=== PATIENT | female | born 1955 | race Caucasian/White ===

== ENCOUNTER 2020-01-07 12:28 | Emergency (ER) | payer OTHER ==
[2020-01-07] MEDS ORDERED: KETOROLAC 30 MG/ML INJ ONE (13:40)
[2020-01-07] MEDS ORDERED: HYDROCODONE/APAP 7.5/325 MG TAB ONE (13:40)
--- NOTE | 2020-01-07 14:22 | RAD REPORT ---
EXAM DESCRIPTION: RAD - Lumbar Spine 3 Views - 01/07/2020 2:13 pm CLINICAL HISTORY: PAIN Radiculopathy COMPARISON: No comparisons FINDINGS: Vertebral body heights appear maintained. No compression fracture noted. Mild disc thinnin g is present at L3-4 and L4-5. Mild levoscoliosis is present. Cholecystectomy clips. Aortic atherosclerosis. IMPRESSION: Mild lower lumbar spondylosis.
--- NOTE | 2020-01-07 14:39 | EDPHYS ---
Physician Documentation [facility] Name: Helena Armas Age: 64 yrs Sex: Female : 1955 Arrival Date: 01/07/2020 Time: 12:31 Bed 8 Private MD: ED Physician Anthony Hodgson HPI: 01/07 13:42 This 64 yrs old Female presents to ER via Wheelchair with complaints of Hip jr8 Pain/back pain. 13:42 The patient presents with pain that is acute, with no known mechanism of injury, and jr8 decreased range of motion. The symptoms are located in the low back, left low back. The pain radiates to the left hip. The problem was sustained without known cause. Onset: The symptoms/episode began/occurred acutely, today. Modifying factors: The patient symptoms are alleviated by nothing, the patient symptoms are aggravated by any movement. Associated signs and symptoms: The patient has no apparent associated signs or symptoms. Severity of symptoms: At their worst the symptoms were moderate, in the emergency department the symptoms are unchanged. The patient has not experienced similar symptoms in the past. The patient has not recently seen a physician. 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 Immediate pain with decreased ROM. Denies fall injury or trying to get up. Pain persistent and not going away. Able to ambulate but with assistance . Historical: - Allergies: 12:36 No Known Allergies; rb1 - Home Meds: 12:36 pravastatin 80 mg oral tab 1 tab once daily [Active]; levothyroxine 50 mcg tab 1 tab rb1 once daily [Active]; amlodipine 5 mg tab 1 tab once daily [Active]; pantoprazole 40 mg oral TbEC 1 tab once daily [Active]; - PMHx: 12:36 Hypothyroidism; High Cholesterol; rb1 - PSHx: 12:36 Cholecystectomy; colon resection; hemorrhoidectomy; rb1 - Immunization history:: Adult Immunizations up to date. - Coronavirus screen:: The patient has NOT traveled to [place] in the past 14 days. The patient has NOT had contact with known/suspected case of Coronavirus?. - Social history:: Smoking status: Patient/guardian denies using. - Ebola Screening: : Patient negative for fever greater than or equal to 101.5 degrees Fahrenheit, and additional compatible Ebola Virus Disease symptoms Patient denies travel to an Ebola-affected area in the 21 days before illness onset. ROS: 13:42 Eyes: Negative for injury, pain, redness, and discharge, ENT: Negative for injury, jr8 pain, and discharge, Neck: Negative for injury, pain, and swelling, Cardiovascular: Negative for chest pain, palpitations, and edema, Respiratory: Negative for shortness of breath, cough, wheezing, and pleuritic chest pain, Abdomen/GI: Negative for abdominal pain, nausea, vomiting, diarrhea, and constipation, MS/Extremity: Negative for injury and deformity, Skin: Negative for injury, rash, and discoloration, Neuro: Negative for headache, weakness, numbness, tingling, and seizure. 13:42 Back: Positive for pain at rest, pain with movement, radiated pain. Exam: 13:42 Eyes: Pupils equal round and reactive to light, extra-ocular motions intact. Lids and jr8 lashes normal. Conjunctiva and sclera are non-icteric and not injected. Cornea within normal limits. Periorbital areas with no swelling, redness, or edema. ENT: Nares patent. No nasal discharge, no septal abnormalities noted. Tympanic membranes are normal and external auditory canals are clear. Oropharynx with no redness, swelling, or masses, exudates, or evidence of obstruction, uvula midline. Mucous membranes moist. Neck: Trachea midline, no thyromegaly or masses palpated, and no cervical lymphadenopathy. Supple, full range of motion without nuchal rigidity, or vertebral point tenderness. No Meningismus. Chest/axilla: Normal chest wall appearance and motion. Nontender with no deformity. No lesions are appreciated. Cardiovascular: Regular rate and rhythm with a normal S1 and S2. No gallops, murmurs, or rubs. Normal PMI, no JVD. No pulse deficits. Respiratory: Lungs have equal breath sounds bilaterally, clear to auscultation and percussion. No rales, rhonchi or wheezes noted. No increased work of breathing, no retractions or nasal flaring. Abdomen/GI: Soft, non-tender, with normal bowel sounds. No distension or tympany. No guarding or rebound. No evidence of tenderness throughout. Skin: Warm, dry with normal turgor. Normal color with no rashes, no lesions, and no evidence of cellulitis. MS/ Extremity: Pulses equal, no cyanosis. Neurovascular intact. Full, normal range of motion. Neuro: Awake and alert, GCS 15, oriented to person, place, time, and situation. Cranial nerves II-XII grossly intact. Motor strength 5/5 in all extremities. Sensory grossly intact. Cerebellar exam normal. Normal gait. 13:42 Back: pain, that is moderate, of the left low back, ROM is painful, normal spinal alignment noted, CVA tenderness, is absent, vertebral tenderness, is not appreciated, Straight leg raises: of both lower extremities does not illicit pain. Vital Signs: 12:36 BP 140 / 76; Pulse 63; Resp 17; Temp 97.9(O); Pulse Ox 100% on R/A; Weight 53.98 kg rb1 (R); Height 5 ft. 2 in. (157.48 cm) (R); Pain 8/10; 13:30 BP 131 / 67; Pulse 68; Resp 16; Pulse Ox 100% on R/A; Pain 8/10; rb1 12:36 Body Mass Index 21.77 (53.98 kg, 157.48 cm) rb1 MDM: 13:03 Patient medically screened. jr8 14:38 Data reviewed: vital signs, nurses notes, radiologic studies, plain films. Data jr8 interpreted: Pulse oximetry: on room air is 100 %. Interpretation: normal. Counseling: I had a detailed discussion with the patient and/or guardian regarding: the historical points, exam findings, and any diagnostic results supporting the discharge/admit diagnosis, radiology results, the need for outpatient follow up, a family practitioner, to return to the emergency department if symptoms worsen or persist or if there are any questions or concerns that arise at home. Response to treatment: the patient's symptoms have markedly improved after treatment. 01/07 13:14 Order name: XRAY Lumbar Spine (3 Views) jr8 Administered Medications: 13:36 Drug: TORadol - Ketorolac 15 mg Route: IM; Site: right deltoid; rb1 15:03 Follow up: Response: No adverse reaction ph 13:36 Drug: [place] (7.5 mg-325 mg) 1 tabs Route: PO; rb1 15:03 Follow up: Response: No adverse reaction; Pain is decreased; RASS: Alert and Calm (0) ph Disposition: 16:34 Co-signature as Attending Physician, Anthony Hodgson MD. rn Disposition: 01/07/20 14:38 Discharged to Home. Impression: Low back pain. - Condition is Stable. - Discharge Instructions: Back Pain, Adult, Musculoskeletal Pain, Back Exercises, [id number], Heat Therapy. - Prescriptions for Ibuprofen 800 mg Oral Tablet - take 1 tablet by ORAL route every 12 hours As needed take with food; 20 tablet. Zanaflex 4 mg Oral Tablet - take 1 tablet by ORAL route every 8 hours As needed; 20 tablet. Medrol (Syed) 4 mg Oral Tablets, Dose Pack - take 1 tablet by ORAL route as directed - follow package instructions; 1 packet. - Medication Reconciliation Form, Thank You Letter, Antibiotic Education, Prescription Opioid Use form. - Follow up: Private Physician; When: 5 - 6 days; Reason: Recheck today's complaints, Continuance of care, Re-evaluation by your physician. - Problem is new. - Symptoms have improved. Signatures: Dispatcher [employer] EDMS Anthony Hodgson MD MD rn Toney Rivera PA PA jr8 Renay Tran RN RN Anamaria Oseguera, ADRIAN RN rb1 Corrections: (The following items were deleted from the chart) 15:06 14:38 01/07/2020 14:38 Discharged to Home. Impression: Low back pain. Condition is ph Stable. Forms are Medication Reconciliation Form, Thank You Letter, Antibiotic Education, Prescription Opioid Use. Follow up: Private Physician; When: 5 - 6 days; Reason: Recheck today's complaints, Continuance of care, Re-evaluation by your physician. Problem is new. Symptoms have improved. jr8
--- NOTE | 2020-01-07 14:39 | ER ---
Nurse's Notes [facility] Name: Helena Armas Age: 64 yrs Sex: Female : 1955 Arrival Date: 01/07/2020 Time: 12:31 Bed 8 Private MD: Diagnosis: Low back pain Presentation: 01/07 12:36 Presenting complaint: Patient states: Was on the mower when she heard two big pops and rb1 was unable to get off the mower. Happened around 1200. Transition of care: patient was not received from another setting of care. Onset of symptoms was January 07, 2020 at 12:00. Risk Assessment: Do you want to hurt yourself or someone else? Patient reports no desire to harm self or others. Initial Sepsis Screen: Does the patient meet any 2 criteria? No. Patient's initial sepsis screen is negative. Does the patient have a suspected source of infection? No. Patient's initial sepsis screen is negative. Care prior to arrival: None. 12:36 Method Of Arrival: Wheelchair rb1 12:36 Acuity: MICHAEL 3 rb1 Triage Assessment: 12:36 General: Appears uncomfortable, slender, Behavior is calm, cooperative. Pain: Complains rb1 of pain in left hip Pain currently is 8 out of 10 on a pain scale. Pain began 1200 today. Pain: Aggravated by weight bearing. Neuro: Level of Consciousness is awake, alert, obeys commands, Oriented to person, place, time, situation, Denies numbness. Cardiovascular: Capillary refill < 3 seconds is brisk in bilateral fingers. Respiratory: Airway is patent Respiratory effort is even, unlabored, Respiratory pattern is regular, symmetrical. GI: No signs and/or symptoms were reported involving the gastrointestinal system. : No signs and/or symptoms were reported regarding the genitourinary system. Derm: Skin is pink, warm \T\ dry. Musculoskeletal: Reports pain in left hip. Historical: - Allergies: 12:36 No Known Allergies; rb1 - Home Meds: 12:36 pravastatin 80 mg oral tab 1 tab once daily [Active]; levothyroxine 50 mcg tab 1 tab rb1 once daily [Active]; amlodipine 5 mg tab 1 tab once daily [Active]; pantoprazole 40 mg oral TbEC 1 tab once daily [Active]; - PMHx: 12:36 Hypothyroidism; High Cholesterol; rb1 - PSHx: 12:36 Cholecystectomy; colon resection; hemorrhoidectomy; rb1 - Immunization history:: Adult Immunizations up to date. - Coronavirus screen:: The patient has NOT traveled to [place] in the past 14 days. The patient has NOT had contact with known/suspected case of Coronavirus?. - Social history:: Smoking status: Patient/guardian denies using. - Ebola Screening: : Patient negative for fever greater than or equal to 101.5 degrees Fahrenheit, and additional compatible Ebola Virus Disease symptoms Patient denies travel to an Ebola-affected area in the 21 days before illness onset. Screenin:36 Abuse screen: Denies threats or abuse. Nutritional screening: No deficits noted. rb1 Tuberculosis screening: No symptoms or risk factors identified. Fall Risk No fall in past 12 months (0 pts). Secondary diagnosis (15 points) impaired mobility, No IV (0 pts). Ambulatory Aid- None/Bed Rest/Nurse Assist (0 pts). Gait- Impaired (20 pts.). Mental Status- Oriented to own ability (0 pts). Total Shelton Fall Scale indicates Low Risk Score (25-44 pts). Fall prevention measures have been instituted. Side Rails Up X 2 Placed close to Nursing Station 1:1 attendant Assigned to Pt. Frequent Obs/Assesments occuring Family Present and informed to notify staff if they need to leave bedside As available Patient and Family Educated on Fall Prevention Program and strategies. Assessment: 12:36 General: See triage assessment. rb1 13:30 Reassessment: Patient appears in no apparent distress at this time. Patient and/or rb1 family updated on plan of care and expected duration. Pain level reassessed. Patient is alert, oriented x 3, equal unlabored respirations, skin warm/dry/pink. at the bedside. 13:57 Reassessment: Assisted pt. with bedside commode. Clear, yellow urine. Output 610. rb1 Vital Signs: 12:36 BP 140 / 76; Pulse 63; Resp 17; Temp 97.9(O); Pulse Ox 100% on R/A; Weight 53.98 kg rb1 (R); Height 5 ft. 2 in. (157.48 cm) (R); Pain 8/10; 13:30 BP 131 / 67; Pulse 68; Resp 16; Pulse Ox 100% on R/A; Pain 8/10; rb1 12:36 Body Mass Index 21.77 (53.98 kg, 157.48 cm) rb1 ED Course: 12:31 Patient arrived in ED. mr 12:36 Arm band placed on right wrist. rb1 12:36 Patient has correct armband on for positive identification. Bed in low position. Call rb1 light in reach. Side rails up X 1. Pulse ox on. NIBP on. 12:38 Renay Tran RN is Primary Nurse. ph 12:39 Toney Rivera PA is PHCP. jr8 12:39 Anthony Hodgson MD is Attending Physician. jr8 12:52 Triage completed. rb1 14:17 XRAY Lumbar Spine (3 Views) In Process Unspecified. EDMS 15:04 No provider procedures requiring assistance completed. Patient did not have IV access ph during this emergency room visit. Administered Medications: 13:36 Drug: TORadol - Ketorolac 15 mg Route: IM; Site: right deltoid; rb1 15:03 Follow up: Response: No adverse reaction ph 13:36 Drug: [place] (7.5 mg-325 mg) 1 tabs Route: PO; rb1 15:03 Follow up: Response: No adverse reaction; Pain is decreased; RASS: Alert and Calm (0) ph Output: 13:57 Urine: 1ml (Voided); Total: 1ml. rb1 Outcome: 14:38 Discharge ordered by . jr8 15:04 Discharged to home via wheelchair, with significant other. ph 15:04 Condition: good 15:04 Discharge instructions given to patient, significant other, Instructed on discharge instructions, follow up and referral plans. medication usage, Demonstrated understanding of instructions, follow-up care, medications, Prescriptions given X 3. 15:06 Patient left the ED. ph Signatures: Dispatcher [employer] EDNH Kaylie Caicedo mr Toney Rivera PA PA jr8 Renay Tran RN RN Anamaria Wetzel RN RN [facility]
[2020-01-07 15:31] VITALS: TEMP 97.9; O2SAT 100
[2020-01-07 15:32] VITALS: BP 131/67
== END 2020-01-07 15:06 | disposition home or self-care (01) ==
LOC: ER 12:28
DX: M54.5 Low back pain (principal)
CPT/HCPCS: 72100; 96372; 99284

== ENCOUNTER 2022-09-11 07:04 | Day surgery (SDC) | payer OTHER ==
[2022-09-11] MEDS ORDERED: Ringers Lactate 1,000 ML IV ONE (07:22)
[2022-09-11] MEDS ORDERED: propofoL 200 MG/20 ML VIAL IV ONE (08:17)
[2022-09-11] MEDS ORDERED: LIDOCAINE 1% MPF 5 ML VIAL ONE (08:17)
--- NOTE | 2022-09-11 08:59 | ENDO RPT ---
[address], [address] COLONOSCOPY PROCEDURE REPORT EXAM DATE: 09/11/2022 PATIENT NAME: Helena Armas V. MR #: [id number] BIRTHDATE: 1955 ATTENDING: Rodriguez Villanueva MD STATUS: outpatient PANTRY STEWARD/STEWARDESS: Dalton Saavedra CST and Preethi Briscoe RN INDICATIONS: The patient is a 67 yr old Female here for a colonoscopy due to diverticulitis and history of polyps PROCEDURE PERFORMED: Colonoscopy with biopsy - cold polypectomy MEDICATIONS: Per Anesthesia. ESTIMATED BLOOD LOSS: None CONSENT: The patient understands the risks and benefits of the procedure and understands that these risks include, but are not limited to: sedation, allergic reaction, infection, perforation and/or bleeding. Alternative means of evaluation and treatment include, among others: physical exam, x-rays, and/or surgical intervention. The patient elects to proceed with this endoscopic procedure. DESCRIPTION OF PROCEDURE: During intra-op preparation period all mechanical medical equipment was checked for proper function. Hand hygiene and appropriate measures for infection prevention was taken. Procedure, possible complications, alternatives including, but not limited to possibility of bleeding, perforation, tear, infection, sepsis, need for surgery, need for blood transfusion, were explained to the patient. After the risks, benefits and alternatives of the procedure were thoroughly explained, Informed consent was verified, confirmed and timeout was successfully executed by the treatment team. The patient was placed in the left lateral position. A digital rectal exam was performed and revealed external hemorrhoids. After appropriate level of anesthesia, the scope was passed. The EC-[id number] ([id number]) endoscope was introduced through the anus and advanced to the cecum, which was identified by transillumination from the light source, the appendix, and the ileocecal valve. The instrument was then slowly withdrawn as the colon was fully examined. Scope withdrawal time was . COLON FINDINGS: Diverticula was found in the descending colon. The opening was medium sized. A sessile polyp was found at approximately 20 cn from anal verge proximal to anastomosis. Retroflexed views revealed no abnormalities. The scope was then completely withdrawn from the patient and the procedure terminated. ADVERSE EVENTS: There were no complications. IMPRESSIONS: 1. Diverticula in the descending colon 2. Sessile polyp ranging between 3-5mm in size was found; polypectomy was performed in a piecemeal fashion using hot forceps 3. External hemorrhoids 4. Internal hemorrhoids RECOMMENDATIONS: 1. await biopsy results 2. follow-up: office 1 week(s) 3. hemorrhoidal hygiene 4. no seeds in diet RECALL: for Colonoscopy, pending biopsy results. Rodriguez iVllanueva MD eSigned: Rodriguez Villanueva MD 09/11/2022 8:59 AM cc: Florinda Holloway CPT CODES: ICD9 CODES: PATIENT NAME: Helena Armas V. MR#: [id number]
[2022-09-11 09:33] VITALS: BP 117/63; TEMP 97.3; O2SAT 100
== END 2022-09-11 09:25 | disposition home or self-care (01) ==
LOC: OR 07:04
PROVIDERS: ATTEND Surgery
PROC: 0DBL8ZX Excision of Transverse Colon, Via Natural or Artificial Opening Endoscopic, Diagnostic (ICD-10-PCS; principal; 2022-09-11 08:30)
DX: Z86.010 Personal history of colon polyps (principal); D12.3 Benign neoplasm of transverse colon; K64.4 Residual hemorrhoidal skin tags; K64.8 Other hemorrhoids; K57.30 Diverticulosis of large intestine without perforation or abscess without bleeding
CPT/HCPCS: 88305; 45384; J2704; J2001; J7120